=== PATIENT | female | born 1995 | race Caucasian/White ===

== ENCOUNTER 2016-03-30 13:04 | Emergency (ER) | payer OTHER, SELFPAY ==
[2016-03-30 13:29] LABS: Bilirubin Negative (Negative); Blood, Urine Trace (Negative); Glucose, Urine (Dipstick) Negative (Negative); Ketone, Urine Negative (Negative); Nitrite Negative (Negative); Protein, Urine (Dipstick) Trace mg/dL (Neg-Trace); Urobilinogen 0.2 mg/dL (0.2-1.0)
[2016-03-30 13:38] LABS: Bacteria/HPF Rare-Few HPF (None Seen); Hyaline Casts/LPF NONE SEEN LPF (0-3 Hyaline); Oval Fat Bodies/HPF None Seen HPF (None Seen); RBC/HPF 0-3 HPF (0-3); Renal Epithelial None Seen HPF (0-3); Sperm/HPF None Seen HPF (None Seen); Squamous Epithelial 0-3 HPF (0-3); Transitional Epithelial NONE SEEN HPF (0-3); Trichomonas/HPF None Seen HPF (None Seen); Yeast-All Forms None Seen HPF (None Seen)
[2016-03-30] MEDS ORDERED: Ondansetron ODT 4 MG TAB ONE (13:45)
--- NOTE | 2016-03-30 14:20 | ERRECORD ---
[facility] EMERGENCY RECORD PAST MEDICAL HISTORY (13:12 KMOR) MEDICAL HISTORY: Flu vaccine up to date, Tetanus immunization up to date, Pneumococcal vaccine not up to date. FEMALE SURGICAL HISTORY: Patient has no surgical history. PSYCHIATRIC HISTORY: No previous psychiatric history. SOCIAL HISTORY: Patient drinks socially, rarely, Patient denies drug use, Patient currently uses tobacco, smokes cigarettes, daily, Patient smokes 1/2 packs per day. KNOWN ALLERGIES No Known Drug Allergies CURRENT MEDICATIONS (13:10 KMOR) None VITAL SIGNS VITAL SIGNS: BP: 132/84, Pulse: 118, Resp: 18, Pain: 6, O2 sat: 100 on Room Air, Time: 03/30/2016 13:10. (13:10 KMOR) Temp: 98.1 (Oral), Time: 03/30/2016 13:13. (13:13 LSMI) MEDICATION ADMINISTRATION SUMMARY Drug Name: Zofran ODT, Dose Ordered: 4 mg, Route: Sublingual, Status: Given, Time: 13:47 03/30/2016, Detailed record available in Medication Service section. PROBLEM LIST No recorded problems DIAGNOSIS (13:54 JPIP) FINAL: PRIMARY: Nausea with vomiting, ADDITIONAL: Probable gastroesophageal reflux. PRESCRIPTION Zofran ODT: TABLET, RAPID DISSOLVE : 4 mg : ORAL : Quantity: 1 Unit: tab(s) Route: ORAL Schedule: every 6 hours PRN Dispense: 10 May substitute. Refills: No Refills . (13:44 JPIP) NOTES: for nausea No refills. (13:44 JPIP) omeprazole: CAPSULE,DELAYED RELEASE (ENTERIC COATED) : 40 mg : ORAL : Quantity: 1 Unit: tab(s) Route: ORAL Schedule: once a day Dispense: 30 May substitute. Refills: No Refills . (13:45 JPIP) NOTES: No refills. (13:45 JPIP) DISPOSITION PATIENT: Disposition Type: Discharge, Disposition: *Discharge Home, Condition: Good. (13:54 JPIP) &a-1R&a+25V*p+0X*x2552D*c202B*c15G*c2P*p-0X&a-25V&a+1R Name: Mana Camilo : 1995 F21 MedRec: [id number] AcctNum: [id number] Prepared: SunMar 30, 2016 14:09 by Interface Page [address] [facility] EMERGENCY RECORD Patient left the department. (14:02 KMOR) Arnett: CLEVEIP=DO Bangura Joseph KMOR=EMERSON Staton, Mariella LSMI=KIN Melendez Leah &a-1R&a+25V*p+0X*[id number]*c202B*c15G*c2P*p-0X&a-25V&a+1R Name: Mana Cmailo : 1995 F21 MedRec: [id number] AcctNum: [id number] Prepared: Danielle Mar 30, 2016 14:09 by Interface Page 2 of 2 pMD MTDD
--- NOTE | 2016-03-30 14:30 | PICIS ---
[facility] EMERGENCY RECORD TRIAGE (SunMar 30, 2016 13:10 KMOR) TRIAGE NOTES: Nausea and vomiting and 2 days late on period. (SunMar 30, 2016 13:10 KMOR) PATIENT: NAME: Mana Camilo, AGE: 21, GENDER: female, : Sun1995, TIME OF GREET: SunMar 30, 2016 13:05, PREFERRED LANGUAGE: Urdu, ETHNICITY: Not or , ECODE BILLING MAP: [facility], SSN: [id number], KG WEIGHT: 118.84, PHONE: , , , PERSON ID: [id number], PCP: NONE. (SunMar 30, 2016 13:10 KMOR) Zip Code: [id number], PAYMENT: [employer] Self Pay. (13:53) COMPLAINT: Nausea and Vomiting. (SunMar 30, 2016 13:10 KMOR) ADMISSION: URGENCY: 4 Non Urgent, ADMISSION SOURCE: Home, TRANSPORT: CAR, BED: ER -02. (SunMar 30, 2016 13:10 KMOR) ASSESSMENT: Assessment: A&OX4. RR EVEN AND UNLABORED., Symptoms began greater than 1 week ago. (13:12 KMOR) PAIN: No complaint of pain. (13:12 KMOR) TRIAGE SCREENING: Patient denies suicidal ideation, Patient denies presence of domestic violence. (13:12 KMOR) LMP: Last menstrual period: 02/26/2016, , P: 2, AB: 0. (13:12 KMOR) PROVIDERS: TRIAGE NURSE: Mariella Staton RN. (SunMar 30, 2016 13:10 KMOR) VITAL SIGNS: BP 132/84, Pulse 118, Resp 18, Pain 6, O2 Sat 100, on Room Air, Time 03/30/2016 13:10. (13:10 KMOR) PREVIOUS VISIT ALLERGIES: No Known Drug Allergies. (SunMar 30, 2016 13:10 KMOR) No Known Drug Allergies. (13:12 KMOR) KNOWN ALLERGIES No Known Drug Allergies CURRENT MEDICATIONS (13:10 KMOR) None VITAL SIGNS VITAL SIGNS: BP: 132/84, Pulse: 118, Resp: 18, Pain: 6, O2 sat: 100 on Room Air, Time: 03/30/2016 13:10. (13:10 KMOR) Temp: 98.1 (Oral), Time: 03/30/2016 13:13. (13:13 LSMI) NURSING ASSESSMENT: ABDOMEN (13:23 KMOR) CONSTITUTIONAL: Patient arrives ambulatory, Gait steady, History obtained from patient, Patient appears comfortable, Patient cooperative, Patient alert, Oriented to person, place and time, Skin warm, Skin dry, Skin normal in color, Mucous membranes pink, Mucous membranes moist, Patient is well-groomed, Patient complains of Nausea and vomiting, Patient reports nausea and vomiting x 20 days, reports concerned for , reports cramping. PAIN: cramping pain, diffusely, on a scale 0-10 patient rates pain as 6. &a-1R&a+25V*p+0X*c1452C*c202B*c15G*c2P*p-0X&a-25V&a+1R Name: Mana Camilo : 1995 F21 MedRec: [id number] AcctNum: [id number] Prepared: [facility] Mar 30, 2016 14:15 by Interface Page 1 of 5 pMD [facility] EMERGENCY RECORD ABDOMEN: Abdomen assessment findings include abdomen symmetrical, Abdomen soft, Bowel sound normal, Associated with nausea, Associated with vomiting, history of vomiting. LMP: : 2, Para: 1, Abortions: 0, First day last menstrual period, Last period started on 02/26/2016. GENITOURINARY FEMALE: no associated urinary complaints. NOTES: Patient tolerated procedure well. NURSING PROCEDURE: DISCHARGE NOTE (13:57 LSMI) DISCHARGE: Patient discharged to home, ambulating without assistance, family driving, accompanied by other family member, Summary of Care printed/ provided, Transition record given to patient, Discharge instructions given to patient, Prescriptions given and instructions on side effects given, Name of prescription(s) given: ZOFRAN OMEPRAZOLE, Above person(s) verbalized understanding of discharge instructions and follow-up care, Patient treated and evaluated by physician. NURSING PROCEDURE: URINE COLLECTION (13:24 KMOR) PATIENT IDENTIFIER: Patient actively involved in identification process, Patient's identity verified by patient stating name, Patient's identity verified by patient stating date. URINE COLLECTION FEMALE: Urine collected by void, output amount (mL) 100ml, urine yellow in color, and clear, Specimen labeled in the presence of the patient and sent to lab. ORDER DETAILS Order Name: Test, Urine (BHCG), Status: Active, Time: 13:14 03/30/2016, User: AMANDA, - Ordered for: DO Bangura Joseph, - Entered by: EMERSON Staton Krista - Danielle Mar 30, 2016 13:14, - Quantity: 1, Order Name: Urinalysis w/ Rflx Microscopic, Status: Active, Time: 13:14 03/30/2016, User: AMANDA, - Ordered for: DO Bangura Joseph, - Entered by: EMERSON Staton Krista - Danielle Mar 30, 2016 13:14, - Quantity: 1. MEDICATION ADMINISTRATION SUMMARY Drug Name: Zofran ODT, Dose Ordered: 4 mg, Route: Sublingual, Status: Given, Time: 13:47 03/30/2016, Detailed record available in Medication Service section. MEDICATION SERVICE (13:47 [facility]) Zofran ODT: Order: Zofran ODT (ondansetron) - Dose: 4 mg : Sublingual Schedule: Now Ordered by: Perry Bangura DO &a-1R&a+25V*p+0X*i1217U*c202B*c15G*c2P*p-0X&a-25V&a+1R Name: Mana Camilo : 1995 F21 MedRec: [id number] AcctNum: [id number] Prepared: SunMar 30, 2016 14:15 by Interface Page 2 of 5 D [facility] EMERGENCY RECORD Entered by: Perry Bangura DO [facility] Mar 30, 2016 13:43 , Acknowledged by: Mariella Staton RN [facility] Mar 30, 2016 13:45 Documented as given by: Mariella Staton RN [facility] Mar 30, 2016 13:47 Patient, Medication, Dose, Route and Time verified prior to administration. Amount given: 4mg, Site: Medication administered S.L., Correct patient, time, route, dose and medication confirmed prior to administration, Patient advised of actions and side-effects prior to administration, Allergies confirmed and medications reviewed prior to administration, Patient in position of comfort, Side rails up, Cart in lowest position, Family at bedside. PAST MEDICAL HISTORY (13:12 KMOR) MEDICAL HISTORY: Flu vaccine up to date, Tetanus immunization up to date, Pneumococcal vaccine not up to date. FEMALE SURGICAL HISTORY: Patient has no surgical history. PSYCHIATRIC HISTORY: No previous psychiatric history. SOCIAL HISTORY: Patient drinks socially, rarely, Patient denies drug use, Patient currently uses tobacco, smokes cigarettes, daily, Patient smokes 1/2 packs per day. EVENTS TRANSFER: Triage to Emergency Emergency Room -02. (SunMar 30, 2016 13:10 KMOR) Removed from Emergency Emergency Room -02. (14:02 KMOR) PROBLEM LIST No recorded problems DIAGNOSIS (13:54 JPIP) FINAL: PRIMARY: Nausea with vomiting, ADDITIONAL: Probable gastroesophageal reflux. DISPOSITION PATIENT: Disposition Type: Discharge, Disposition: *Discharge Home, Condition: Good. (13:54 JPIP) Patient left the department. (14:02 KMOR) INSTRUCTION (13:53 JPIP) DISCHARGE: NAUSEA VOMITING 5YADULT, ESOPHAGEAL REFLUX (ADULT). SPECIAL: Follow up with Primary Care Physician within 72 hours Call your Primary Care Physician in the morning for a follow up appointment Return to the Emergency Department for increased symptoms problems or concerns. PRESCRIPTION Zofran ODT: TABLET, RAPID DISSOLVE : 4 mg : ORAL : Quantity: 1 Unit: tab(s) Route: ORAL Schedule: every 6 hours PRN Dispense: &a-1R&a+25V*p+0X*t2793V*c202B*c15G*c2P*p-0X&a-25V&a+1R Name: CamiloMana sevilla Jolly : 1995 F21 MedRec: [id number] AcctNum: [id number] Prepared: SunMar 30, 2016 14:15 by Interface Page 3 of 5 pMD [facility] EMERGENCY RECORD 10 May substitute. Refills: No Refills . (13:44 JPIP) NOTES: for nausea No refills. (13:44 JPIP) omeprazole: CAPSULE,DELAYED RELEASE (ENTERIC COATED) : 40 mg : ORAL : Quantity: 1 Unit: tab(s) Route: ORAL Schedule: once a day Dispense: 30 May substitute. Refills: No Refills . (13:45 JPIP) NOTES: No refills. (13:45 JPIP) RESULTS (13:43 JPIP) LABORATORY: Urine Microscopic Collection DT: Danielle Mar 30, 2016 13:25, RBC/HPF 0-3 HPF, Range (0-3), *WBC/HPF 4-6 - H HPF, Range (0-3), Squamous Epithelial 0-3 HPF, Range (0-3), Transitional Epithelial NONE SEEN HPF, Range (0-3), Renal Epithelial None Seen HPF, Range (0-3), Bacteria/HPF Rare-Few HPF, Range (None Seen), Yeast-All Forms None Seen HPF, Range (None Seen), Trichomonas/HPF None Seen HPF, Range (None Seen), Oval Fat Bodies/HPF None Seen HPF, Range (None Seen), Sperm/HPF None Seen HPF, Range (None Seen), Hyaline Casts/LPF NONE SEEN LPF, Range (0-3 Hyaline). Urinalysis w/ Rflx Microscopic Collection DT: SunMar 30, 2016 13:25, Color Light yellow , Range (Yellow), Clarity Slightly Cloudy , Range (Clear), Specific [place], Urine 1.020 , Range (1.005-1.030), pH, Urine 5.5 , Range (5.0-9.0), *Leukocyte Small - H , Range (Negative), Nitrite Negative , Range (Negative), Protein, Urine (Dipstick) Trace mg/dL, Range (Neg-Trace), Glucose, Urine (Dipstick) Negative mg/dL, Range (Negative), Ketone, Urine Negative mg/dL, Range (Negative), Urobilinogen 0.2 mg/dL, Range (0.2-1.0), Bilirubin Negative , Range (Negative), *Blood, Urine Trace - H , Range (Negative). Test, Urine (BHCG) Collection DT: Danielle Mar 30, 2016 13:25, Test - Urine (BHCG) NEGATIVE , Range (NEGATIVE), Method of sensitivity- Indeterminant: results should be repeated, after 48 hours. Positive: results may be detected as early as 4-5 days before a first missed menses. Elimination of BHCG-, Elimination following first trimester D&C: 29-44 Days , Elimination following term : 8-24 Days , Specific [place] 1.020 , Range (1.002-1.036). &a-1R&a+25V*p+0X*l9464C*c202B*c15G*c2P*p-0X&a-25V&a+1R Name: Mana Camilo : 1995 MedRec: [id number] AcctNum: [id number] Prepared: SunMar 30, 2016 14:15 by Interface Page 4 of 5 pMD [facility] EMERGENCY RECORD Arnett: CLEVEIP=DO Bangura Joseph KMOR=EMERSON Staton, Mariella LSMI=KIN Melendez Leah &a-1R&a+25V*p+0X*u5308J*c202B*c15G*c2P*p-0X&a-25V&a+1R Name: TonMana : 1995 1 MedRec: [id number] AcctNum: [id number] Prepared: Danielle Mar 30, 2016 14:15 by Interface Page 5 of 5 pMD MTDD
== END 2016-03-30 13:57 | disposition home or self-care (01) ==
LOC: BURERS 13:04
DX: R11.2 Nausea with vomiting, unspecified (principal); F17.210 Nicotine dependence, cigarettes, uncomplicated
CPT/HCPCS: 81003; 81015; 81025; 99284; Q0162

== ENCOUNTER 2016-05-31 17:31 | Emergency (ER) | payer SELFPAY ==
[2016-05-31 18:02] LABS: Blood, Urine Small (Negative); Clarity Clear (Clear); Glucose, Urine (Dipstick) Negative (Negative); Leukocyte Moderate (Negative); Nitrite Negative (Negative); Protein, Urine (Dipstick) 30 mg/dL (Neg-Trace)
[2016-05-31 18:04] LABS: Bilirubin Negative (Negative); Pregu Control Bar Appear? YES (CONTROL BAR); Specific Gravity 1.023 (1.002-1.036)
[2016-05-31 18:19] LABS: Bacteria/HPF Rare-Few HPF (None Seen)
[2016-05-31] MEDS ORDERED: Nitrofurantoin Monohyd/M-Cryst 100 MG CAP ONE (18:47)
== END 2016-05-31 18:49 | disposition home or self-care (01) ==
LOC: BURERS 17:31
DX: N39.0 Urinary tract infection, site not specified (principal); F17.210 Nicotine dependence, cigarettes, uncomplicated
CPT/HCPCS: 81003; 81015; 81025; 87077; 87086; 87186; 87480; 87491; 87510; 87591; 87660; 99283

== ENCOUNTER 2016-12-20 16:05 | Emergency (ER) | payer OTHER ==
[2016-12-20 16:31] LABS: #Basophils 0.1 thou/uL (0.0-0.2); #Eosinphils 0.6 thou/uL (0.0-0.7); #Lymphocytes 2.1 thou/uL (1.20-3.40); #Monocytes 0.4 thou/uL (0.11-0.59); #Neutrophils 9.5 thou/uL (1.40-6.50); %Basophils 0.6 % (0.0-1.0); %Eosinophils 4.4 % (0.0-10.0); %Monocytes 2.9 % (0.0-10.0); %Neutrophils 75.2 % (42.0-75.0); Hemoglobin 11.4 g/dL (12.0-16.0); Mean Corpuscular Hemoglobin 32.6 pg (27.0-31.0); Mean Corpuscular Volume 95.7 fl (81.0-99.0); Mean Platelet Volume 7.1 fL (7.4-10.4); Platelet Count 259 thou/uL (130-400); White Blood Cell (WBC) Count 12.6 thou/uL (4.8-10.8)
[2016-12-20 16:41] LABS: Bilirubin Small (Negative); Blood, Urine Negative (Negative); Clarity Slightly Cloudy (Clear); Glucose, Urine (Dipstick) Negative (Negative); Leukocyte Negative (Negative); Nitrite Negative (Negative); Protein, Urine (Dipstick) 100 mg/dL (Neg-Trace); pH, Urine 6.5 (5.0-9.0)
[2016-12-20 16:42] LABS: Specific Gravity, Urine 1.035 (1.002-1.036)
[2016-12-20 16:49] LABS: ALT (SGPT) 11 U/L (8-55); AST (SGOT) 19 U/L (5-34); Albumin 3.6 g/dL (3.5-5.0); Alkaline Phosphatase 61 U/L (40-150); Anion Gap 13 mmol/L (10-20); BUN (Urea Nitrogen) 10 mg/dL (7.0-18.7); Bilirubin, Total 0.2 mg/dL (0.2-1.2); Calc. Creatinine Clearance 0 mL/min (70-130); Calcium 9.2 mg/dL (7.8-10.44); Carbon Dioxide 17 mmol/L (22-29); Chloride 110 mmol/L (98-107); Estimated GFR-MDRD Greater than 90; Globulin 3.6 g/dL (2.4-3.5); Glucose 116 mg/dL (70-105); Potassium 3.4 mmol/L (3.5-5.1); Protein, Total 7.2 g/dL (6.0-8.3); Sodium 137 mmol/L (136-145)
[2016-12-20 16:51] LABS: Bacteria/HPF 2+ HPF (None Seen); Crystals/HPF 1+ CA OXALATE HPF (Negative); Hyaline Casts/LPF NONE SEEN LPF (0-3 Hyaline); Other Casts/LPF None Seen LPF (0-3 Hyaline); Oval Fat Bodies/HPF None Seen HPF (None Seen); RBC/HPF None Seen HPF (0-3); Renal Epithelial None Seen HPF (0-3); Sperm/HPF None Seen HPF (None Seen); Squamous Epithelial 0-3 HPF (0-3); Transitional Epithelial NONE SEEN HPF (0-3); Trichomonas/HPF None Seen HPF (None Seen); Yeast-All Forms None Seen HPF (None Seen)
== END 2016-12-20 17:15 | disposition home or self-care (01) ==
LOC: BURERS 16:05
DX: O23.13 Infections of bladder in pregnancy, third trimester (principal); O99.333 Smoking (tobacco) complicating pregnancy, third trimester; F17.210 Nicotine dependence, cigarettes, uncomplicated; Z3A.28 28 weeks gestation of pregnancy
CPT/HCPCS: 80053; 81003; 81015; 85025; 87086; 99284

== ENCOUNTER 2017-09-04 19:53 | Emergency (ER) | payer SELFPAY ==
[2017-09-04 20:37] LABS: BHCG - Serum Negative (NEGATIVE); Pregs Control Background? CLEAR/WHITE (CLR/WHITE); Pregs Control Bar Appear? YES (CONTROL BAR)
[2017-09-04 20:38] LABS: Bilirubin Negative (Negative); Blood, Urine Negative (Negative); Clarity Slightly Cloudy (Clear); Glucose, Urine (Dipstick) 100 mg/dL (Negative); Leukocyte Negative (Negative); Nitrite Negative (Negative); Protein, Urine (Dipstick) 30 mg/dL (Neg-Trace); Specific Gravity, Urine 1.025 (1.005-1.030); Urobilinogen 0.2 mg/dL (0.2-1.0)
[2017-09-04 20:40] LABS: ALT (SGPT) 58 U/L (8-55); AST (SGOT) 56 U/L (5-34); Albumin 3.7 g/dL (3.5-5.0); Alkaline Phosphatase 52 U/L (40-150); Anion Gap 12 mmol/L (10-20); BUN (Urea Nitrogen) 6 mg/dL (7.0-18.7); Bilirubin, Total 0.3 mg/dL (0.2-1.2); Calc. Creatinine Clearance 0 mL/min (70-130); Calcium 8.8 mg/dL (7.8-10.44); Carbon Dioxide 22 mmol/L (22-29); Chloride 110 mmol/L (98-107); Estimated GFR-MDRD Greater than 90; Globulin 3.2 g/dL (2.4-3.5); Glucose 198 mg/dL (70-105); Potassium 3.8 mmol/L (3.5-5.1); Protein, Total 6.9 g/dL (6.0-8.3); Sodium 140 mmol/L (136-145)
[2017-09-04 20:42] LABS: #Basophils 0.2 thou/uL (0.0-0.2); #Eosinphils 1.7 thou/uL (0.0-0.7); #Lymphocytes 3.6 thou/uL (1.20-3.40); #Monocytes 0.3 thou/uL (0.11-0.59); #Neutrophils 6.4 thou/uL (1.40-6.50); %Basophils 1.3 % (0.0-1.0); %Eosinophils 13.6 % (0.0-10.0); %Lymphocytes 29.8 % (21.0-51.0); %Monocytes 2.7 % (0.0-10.0); %Neutrophils 52.6 % (42.0-75.0); Hemoglobin 13.7 g/dL (12.0-16.0); MDiff Complete? YES; Mean Corpuscular HGB CONC 38.2 g/dL (32.0-36.0); Mean Corpuscular Hemoglobin 31.6 pg (27.0-31.0); Mean Corpuscular Volume 82.8 fL (78.0-98.0); Mean Platelet Volume 6.3 fL (7.4-10.4); Platelet Count 256 thou/uL (130-400); Red Blood Cell (RBC) Count 4.34 mill/uL (4.20-5.40); Small Platelets SLIGHT; White Blood Cell (WBC) Count 12.2 thou/uL (4.8-10.8)
[2017-09-04 20:45] LABS: Bacteria/HPF 1+ HPF (None Seen); Crystals/HPF None Seen HPF (Negative); Hyaline Casts/LPF NONE SEEN LPF (0-3 Hyaline); Other Casts/LPF None Seen LPF (0-3 Hyaline); Oval Fat Bodies/HPF None Seen HPF (None Seen); RBC/HPF None Seen HPF (0-3); Renal Epithelial None Seen HPF (0-3); Sperm/HPF None Seen HPF (None Seen); Transitional Epithelial NONE SEEN HPF (0-3); Trichomonas/HPF None Seen HPF (None Seen); Yeast-All Forms None Seen HPF (None Seen)
--- NOTE | 2017-09-04 20:59 | RAD ---
CHEST ONE VIEW: 09/04/17 HISTORY: Shortness of breath. COMPARISON: Radiograph 09/25/15. FINDINGS: Lungs are clear. No pneumothorax or effusion. Cardiac silhouette and mediastinal contours are within normal limits. IMPRESSION: No acute intrathoracic abnormality. POS: [facility]
[2017-09-04] MEDS ORDERED: Sulfameth/Trimethoprim DS 800-160mg TAB ONE (21:17)
== END 2017-09-04 21:28 | disposition home or self-care (01) ==
LOC: BURERS 19:53
DX: N39.0 Urinary tract infection, site not specified (principal); E86.9 Volume depletion, unspecified; R79.89 Other specified abnormal findings of blood chemistry; F17.210 Nicotine dependence, cigarettes, uncomplicated
CPT/HCPCS: 71045; 80053; 81003; 81015; 84703; 85025; 85379; 87086; 94760; 96360

== ENCOUNTER 2018-01-08 18:16 | Emergency (ER) | payer SELFPAY ==
[2018-01-08] MEDS ORDERED: Ondansetron ODT 4 MG TAB ONE (18:48)
== END 2018-01-08 19:32 | disposition home or self-care (01) ==
LOC: BURERS 18:16
DX: A08.4 Viral intestinal infection, unspecified (principal); F17.210 Nicotine dependence, cigarettes, uncomplicated
CPT/HCPCS: 99283; Q0162